=== PATIENT | male | born 1935 | race Caucasian/White ===

== ENCOUNTER 2017-05-31 12:33 | Emergency (ER) | payer OTHER ==
[~2017-05-31] VITALS: Ht 165.1 cm; Wt 73.5 kg
[2017-05-31 12:37] VITALS: BP 157/90
[2017-05-31] MEDS ORDERED: BACTRIM DS TAB1 EACH PO (15:09)
--- NOTE | 2017-05-31 15:09 | ED SKIN/ALLERGY COMPLAINT ---
History of Present Illness General Chief Complaint: Skin Rash/ Abcess Stated Complaint: ABCESS ON R SIDE OF BACK Source: patient Exam Limitations: no limitations Vital Signs & Intake/Output Vital Signs & Intake/Output Vital Signs Date Time Temp Pulse Resp B/P B/P Pulse O2 O2 Flow FiO2 Mean Ox Delivery Rate 05/31 1237 97.4 88 20 157/90 98 Room Air Allergies Coded Allergies: No Known Allergies (05/31/17) Reconcile Medications Metoprolol Tartrate 25 MG TABLET 1 TAB PO BID HTN (Reported) Omeprazole 40 MG CAPSULE.DR 1 CAP PO DAILY GERD (Reported) Simvastatin (Simvastatin*) 40 MG TABLET 1 TAB PO QPM CHOL. (Reported) Sulfamethoxazole/Trimethoprim (Bactrim Ds Tablet) 800 MG-160 MG TABLET 1 TAB PO BID abscess Triage Note: PT TO ED C/O "CYST IN SHOULDER THAT'S INFECTED". STATES H/O SAME. NOTICED ON RIGHT SHOULDER A FEW WEEKS AGO. LARGE CYST/ABSCESS NOTED TO RIGHT UPPER BACK. Triage Nurses Notes Reviewed? yes Onset: Abrupt Duration: week(s):, constant, getting worse Timing: recent history Severity: moderate, severe No Modifying Factors: none HPI: 81-year-old male comes into the emergency room for further evaluation of large abscess/swelling to the right side of his back. Patient reports he has a history of abscesses. This has gotten progressively larger. Denies any fever chills body aches. Denies any other associated symptoms. Past History Travel History Traveled to [place] past 21 day No Medical History Any Pertinent Medical History? see below for history Cardiovascular: hypertension, hyperlipidemia, myocardial infarction Gastrointestinal: GERD, barretts esophagus Musculoskeletal: lyme Influenza Vaccine: 01/30/09 Surgical History Surgical History: non-contributory Psychosocial History Who do you live with Spouse What is your primary language [place] Tobacco Use: Quit >30 days ago ETOH Use: denies use Illicit Drug Use: denies illicit drug use Family History Hx Contributory? No Review of Systems Review of Systems Constitutional: Reports: no symptoms. EENTM: Reports: no symptoms. Respiratory: Reports: no symptoms. Cardiovascular: Reports: no symptoms. GI: Reports: no symptoms. Genitourinary: Reports: no symptoms. Musculoskeletal: Reports: see HPI. Skin: Reports: see HPI. Neurological/Psychological: Reports: no symptoms. Hematologic/Endocrine: Reports: no symptoms. Immunologic/Allergic: Reports: no symptoms. All Other Systems: Reviewed and Negative Physical Exam Physical Exam General Appearance: well developed/nourished, mild distress Head: atraumatic Eyes: Bilateral: normal appearance. Ears, Nose, Throat: normal ENT inspection, hearing grossly normal Neck: normal inspection Respiratory: no respiratory distress Back: normal inspection Extremities: normal inspection, normal range of motion, no edema Neurologic/Psych: awake, alert, oriented x 3, normal mood/affect Skin: intact, rash Skin Problem Character: 16 cmswelling, some mild erythema, fluctuance, Diagram Body: 1) Progress Differential Diagnosis: abscess/cellulitis, allergic reaction, asthma, contact dermatitis, lyme disease Plan of Care: Orders Procedure Date/time Status TRUNK AREA CULTURE 05/31 1507 Active Microbiology 05/31 1532 TRUNK: Culture & Sensitivity - RECD 05/31 1532 TRUNK: Gram Stain - RECD Departure Departure Disposition: HOME OR SELF CARE Condition: Stable Clinical Impression Primary Impression: Skin abscess Referrals: Herman TERAN,Lorene (PCP/Family) Arya TERAN,Bob Cabrera Additional Instructions: return in 2 days for packing removal and wound check. f/i with general surgeon. return fi ahy other concerns. Departure Forms: Customer Survey General Discharge Information Prescriptions: Current Visit Scripts Sulfamethoxazole/Trimethoprim (Bactrim Ds Tablet) 1 TAB PO BID #20 TAB Procedures Incision and Drainage Site: right upper back Blade Size: 11 I & D Procedure: Yes: betadine prep, sterile drapes applied, sterile dressing applied, wick placed. Progress: 1% lidocaine, 8 mL injected, 100 mL white discharge with some bloody discharge expelled from the wound,
[2017-05-31] MEDS ORDERED: METOPROLOL TART25 M1 PO (15:51)
[2017-05-31] MEDS ORDERED: SIMVASTATIN40 M1 PO (15:51)
[2017-05-31] MEDS ORDERED: OMEPRAZOLE40 M1 PO (15:52)
== END 2017-05-31 15:52 ==
LOC: ERH 12:33
DX: L02.212 Cutaneous abscess of back [any part, except buttock and flank] (principal)
CPT/HCPCS: 87070

== ENCOUNTER 2017-06-03 12:04 | Emergency (ER) | payer OTHER ==
[~2017-06-03 12:04] MED LIST: BACTRIM DS TAB1 EACH PO; METOPROLOL TART25 M1 PO; OMEPRAZOLE40 M1 PO; SIMVASTATIN40 M1 PO
[2017-06-03 12:19] VITALS: BP 148/77
--- NOTE | 2017-06-03 12:52 | ED ANIMAL BITE/WOUND CHECK ---
History of Present Illness General Chief Complaint: Suture Removal/Wound Recheck Stated Complaint: WOUND RECHECK/PACKING IN ABCESS Source: patient, old records Exam Limitations: no limitations Vital Signs & Intake/Output Vital Signs & Intake/Output Vital Signs Date Time Temp Pulse Resp B/P B/P Pulse O2 O2 Flow FiO2 Mean Ox Delivery Rate 06/03 1219 98.2 83 20 148/77 98 Allergies Coded Allergies: No Known Allergies (05/31/17) Reconcile Medications Metoprolol Tartrate 25 MG TABLET 1 TAB PO BID HTN (Reported) Omeprazole 40 MG CAPSULE.DR 1 CAP PO DAILY GERD (Reported) Simvastatin (Simvastatin*) 40 MG TABLET 1 TAB PO QPM CHOL. (Reported) Sulfamethoxazole/Trimethoprim (Bactrim Ds Tablet) 800 MG-160 MG TABLET 1 TAB PO BID abscess Triage Note: PER PT HERE FOR WOUND CHECK, BACK ABSCESS DRAINING Triage Nurses Notes Reviewed? yes Onset: Abrupt Duration: day(s):, constant, continues in ED Timing: recent history Injury Environment: home No Modifying Factors: none HPI: 81-year-old male comes into the emergency room for further evaluation of wound check and packing removal. Patient had an abscess drained here the other day on his upper back. Packing placed. Patient reports that it has continued to drain at home. Denies any fever chills vomiting. Denies any other associated symptoms. (Shashi Gates) Past History Travel History Traveled to [place] past 21 day No Medical History Any Pertinent Medical History? see below for history Neurological: NONE EENT: NONE Cardiovascular: hypertension, hyperlipidemia, myocardial infarction Respiratory: NONE Gastrointestinal: GERD, barretts esophagus Hepatic: NONE Renal: NONE Musculoskeletal: lyme Psychiatric: NONE Endocrine: NONE Surgical History Surgical History: non-contributory Psychosocial History Who do you live with Spouse What is your primary language [place]ic Tobacco Use: Never used Family History Hx Contributory? No (Shashi Gates) Review of Systems Review of Systems Constitutional: Reports: no symptoms. EENTM: Reports: no symptoms. Respiratory: Reports: no symptoms. Cardiovascular: Reports: no symptoms. GI: Reports: no symptoms. Genitourinary: Reports: no symptoms. Musculoskeletal: Reports: no symptoms. Skin: Reports: see HPI. Neurological/Psychological: Reports: no symptoms. Hematologic/Endocrine: Reports: no symptoms. Immunologic/Allergic: Reports: no symptoms. All Other Systems: Reviewed and Negative (Shashi Gates) Physical Exam Physical Exam General Appearance: well developed/nourished, mild distress Head: atraumatic Eyes: Bilateral: normal appearance. Ears, Nose, Throat: normal ENT inspection, hearing grossly normal Neck: normal inspection Respiratory: no respiratory distress Back: 10 Ml OF WHITE DISCHARGE EXPRESSED, PACKING REMOVED, NO ERYTHEMA, NO INDURATION, Extremities: normal range of motion Neurologic/Psych: awake, alert, oriented x 3, normal mood/affect Skin: intact, normal color, warm/dry Lymphatic: no anterior cervical rei (Shashi Gates) Progress Differential Diagnosis: abscess, cellulitis, joint infection, tenosysnovitis Plan of Care: 06/03/2017 2:13:47 PM Packing removed. Patient told to do hot baths and warm compresses at home. Patient was referred to general surgeon for follow-up. Return if any other concerns worsening symptoms. Patient understands and agrees with plan of care. (Shashi Gates) Departure Departure Disposition: HOME OR SELF CARE Condition: Stable Clinical Impression Primary Impression: Encounter for recheck of abscess following incision and drainage Referrals: Lorene Sutton MD (PCP/Family) Arya TERAN,Bob Cabrera Additional Instructions: Continue taking Bactrim. Warm soaks at home. Follow-up with general surgeon provided. Return if any other concerns worsening symptoms. Please go over all results of today's visit with your primary care doctor. Contact your primary care doctor to let them know you were here in the emergency room. There may be nonspecific findings which may not be related to your visit today here in the emergency room but may require further evaluation and chronic monitoring by your primary care doctor. If you had a laceration today the chance of foreign body always remains. You should follow-up with your primary care doctor for recheck in 3-5 days for a wound check. If you had an x-ray done there is a chance that a fracture could have been missed on initial read and you should follow-up with your primary care doctor for repeat x-rays if symptoms persist. If your blood pressure was elevated here in the emergency room please have rechecked by [facility] primary care doctor within the next 48. If you were prescribed a narcotic here in the emergency room or any type of controlled substances you're not allowed to drive while taking this medication or operate any type of heavy machinery. Narcotics can make you feel lightheaded dizziness nausea and can cause constipation. You may need to picker / packer a stool softener. Thank you for choosing [facility] emergency room. Please return to the emergency room immediately if you have any other concerns worsening of symptoms. Departure Forms: Customer Survey General Discharge Information (Shashi Gates) PA/EMBOSSING MACHINE TENDER Co-Sign Statement Statement: ED Attending supervision documentation- [] I saw and evaluated the patient. I have also reviewed all the pertinent lab results and diagnostic results. I agree with the findings and the plan of care as documented in the PA's/EMBOSSING MACHINE TENDER's documentation. [X] I have reviewed the ED Record and agree with the PA's/EMBOSSING MACHINE TENDER's documentation. [] Additions or exceptions (if any) to the PAs/EMBOSSING MACHINE TENDER's note and plan are summarized below: [] (Key TERAN,Marilee)
== END 2017-06-03 12:57 ==
LOC: ERH 12:04
DX: Z48.01 Encounter for change or removal of surgical wound dressing (principal)